=== PATIENT | male | born 1970 | race Caucasian/White ===

== ENCOUNTER 2023-03-08 11:10 | Emergency (ER) | payer OTHER ==
[~2023-03-08] VITALS: Ht 180.3 cm; Wt 118.8 kg
[2023-03-08 12:51] LABS: BASO # 0.1 10^3/uL (0.0-0.2); BASO % 1.2 % (0.0-1.0); EOS # 0.2 10^3/uL (0.0-0.5); EOS % 1.9 % (0.0-3.0); HEMOGLOBIN 17.1 g/dl (13.5-17.5); LYMPH # 2.7 10^3/uL (1.5-5.0); LYMPH % 33.3 % (24.0-44.0); MEAN CORPUSCULAR HEMOGLOBIN 27.4 pg (27.0-33.0); MEAN CORPUSCULAR HGB CONC 34.9 g/dl (32.0-36.5); MEAN CORPUSCULAR VOLUME 78.7 fl (80.0-96.0); MONO # 0.7 10^3/uL (0.0-0.8); MONO % 8.9 % (2.0-8.0); NEUTROPHILS # 4.5 10^3/uL (1.5-8.5); NEUTROPHILS % 54.3 % (36.0-66.0); PLATELET COUNT, AUTOMATED 260 10^3/uL (150-450); RED BLOOD COUNT 6.23 10^6/uL (4.30-6.10); WHITE BLOOD COUNT 8.2 10^3/uL (4.0-10.0)
[2023-03-08 12:58] LABS: OSMOLALITY SERUM 311 MOSM/KG (275-295)
[2023-03-08 13:07] LABS: ALKALINE PHOSPHATASE 98 U/L (46-116); ALT/SGPT 47 U/L (7.0-40); AST/SGOT 36 U/L (<34); BILIRUBIN,DIRECT 0.1 MG/DL (<0.4); BILIRUBIN,TOTAL 0.8 MG/DL (0.3-1.2); BLOOD UREA NITROGEN 18 MG/DL (9-23); CARBON DIOXIDE LEVEL 23 MMOL/L (20-31); CHLORIDE LEVEL 98 MMOL/L (98-107); CK-MB VALUE MASS < 1.0 NG/ML (<3.6); CPK CREATINE PHOSPHOKINASE 98 U/L (46-171); CREATININE FOR GFR 0.72 MG/DL (0.70-1.30); FREE T4 1.34 NG/DL (0.89-1.76); GLOMERULAR FILTRATION RATE > 60.0 (>56); GLUCOSE, FASTING 367 MG/DL (60-100); MB/CK RELATIVE INDEX 1.02 (< OR =4); POTASSIUM SERUM 4.8 MMOL/L (3.5-5.1); SODIUM LEVEL 130 MMOL/L (136-145); TOTAL PROTEIN 7.1 G/DL (5.7-8.2)
[2023-03-08] MEDS ORDERED: metFORMIN XR 500MG TAB *GLUCOPHAGE XR PO ONE (13:15)
[2023-03-08 13:51] LABS: ACETONE/KETONE 0.97 MMOL/L (0.02-0.27)
[2023-03-08] MEDS ORDERED: NS 1,000 ML IV ONE (14:30)
[2023-03-08] MEDS ORDERED: SITagliptin 50 MG TAB (JANUVIA) PO ONE (14:50)
[2023-03-08] MEDS ORDERED: LEVEMIR (INSULIN DETEMIR) 1 UNITS/0.01ML SC ONE (14:50)
[2023-03-08] MEDS ORDERED: JANU50TA25 PO (15:25)
[2023-03-08 16:37] VITALS: BP 122/72; TEMP 98; O2SAT 97
== END 2023-03-08 16:39 | disposition home or self-care (01) ==
LOC: M ED 11:10
DX: E11.65 Type 2 diabetes mellitus with hyperglycemia (principal); I10 Essential (primary) hypertension; E66.9 Obesity, unspecified; E78.5 Hyperlipidemia, unspecified; F32.A Depression, unspecified; F10.11 Alcohol abuse, in remission; Z86.73 Personal history of transient ischemic attack (TIA), and cerebral infarction without residual deficits; Z82.49 Family history of ischemic heart disease and other diseases of the circulatory system; Z83.3 Family history of diabetes mellitus
CPT/HCPCS: 70450; 71046; 80048; 80076; 82010; 82550; 82553; 83036; 83930; 84439; 84443; 84484; 85025; 93005; 93041; 94760; 96360; 96372; 99285; J1815

== ENCOUNTER → 2023-04-20 | Outpatient (REF) ==
[~2023-04-20] MED LIST: JANU50TA25 PO
== END ==
LOC: M PLAIMG 13:27
PROVIDERS: ATTEND Internal Medicine
DX: R06.02 Shortness of breath (principal)

== ENCOUNTER → 2023-07-22 | Outpatient (REF) | LOC: M PLALAB 15:02 | PROVIDERS: ATTEND Family Medicine | DX: R52 Pain, unspecified (principal) ==